=== PATIENT | male | born 1950 | race Hispanic/Latino ===

== ENCOUNTER 2022-01-01 14:53 | Inpatient (IN) | payer MEDICARE, MEDICAID ==
[~2022-01-01] VITALS: Ht 165.1 cm; Wt 80.0 kg
--- NOTE | 2022-01-01 16:00 | NUR ---
TO ROOM VIA WHEELCHAIR
--- NOTE | 2022-01-01 16:15 | NUR ---
CARDIZIEM GTT INITIATED PER PROTOCOL
--- NOTE | 2022-01-01 16:20 | NUR ---
CARDIZIEM GTT INCREASED TO 15MG PER PROTOCOL. PT ALERT AND ORIENTED, RESPS EVEN AND UNLABORED ON ROOM AIR, DENIES PAIN
[2022-01-01] MEDS ORDERED: IPRATROPIU0.5 MG/3 M IN (16:40)
[2022-01-01] MEDS ORDERED: LASIX 40 MG TAB40 MG PO (16:40)
[2022-01-01] MEDS ORDERED: METFORMIN HCL1000 MG PO (16:40)
[2022-01-01] MEDS ORDERED: ACETAMIN500 M2 PO (16:41)
[2022-01-01] MEDS ORDERED: TOPROL XL50 MG PO (16:41)
[2022-01-01] MEDS ORDERED: FERROUS SULF324 M1 PO (16:42)
[2022-01-01] MEDS ORDERED: ELIQUIS5 MG PO (16:42)
[2022-01-01] MEDS ORDERED: OMEPRAZOLE DR40 MG PO (16:43)
[2022-01-01] MEDS ORDERED: ZESTRIL5 M1 PO (16:44)
--- NOTE | 2022-01-01 17:05 | NUR ---
CARDIZIEM TITRATED TO 10MG PER PROTOCOL.
[2022-01-01 17:15] LABS: HEMATOCRIT 34.7 % (39.0-50.0); HEMOGLOBIN 10.7 g/dl (14.0-18.0); IMMATURE GRANULOCYTES 0.2 % (0.0-5.0); MEAN CORPUSCULAR HGB 24.7 pG CALC (26.0-32.0); MEAN CORPUSCULAR HGB CONC 30.8 g/dL CAL (32.0-36.0); NEUT# 6.83 thou/uL (1.82-7.42); RED BLOOD COUNT 4.34 mill/uL (4.70-6.10)
[2022-01-01 17:17] LABS: URINE BILIRUBIN - DIPSTICK NEGATIVE (NEGATIVE); URINE BLOOD DIPSTICK NEGATIVE (NEGATIVE); URINE COLOR YELLOW; URINE GLUCOSE - DIPSTICK NEGATIVE (NEGATIVE); URINE KETONE NEGATIVE (NEGATIVE); URINE LEUK ESTERASE NEGATIVE (NEGATIVE); URINE PROTEIN - DIPSTICK NEGATIVE (NEG-TRACE); URINE SPECIFIC GRAVITY 1.015; URINE UROBILINOGEN - DIPSTICK 0.2 E.U./dL (0.2)
[2022-01-01 17:21] LABS: URINE NITRITE - DIPSTICK NEGATIVE (Negative)
[2022-01-01 17:35] LABS: ALBUMIN 4.1 g/dL (3.2-5.0); ALKALINE PHOSPHATASE 105 u/l (38-126); ANION GAP 15 (6-22 (CALC)); BILIRUBIN, TOTAL 0.6 mg/dL (0.0-1.4); BUN 14 mg/dL (8-23); BUN/CREATININE RATIO 18 (12-20 (CALC)); CARBON DIOXIDE 27 mmol/l (22-30); CHLORIDE 96 mmol/l (95-108); CREATININE 0.8 mg/dL (0.7-1.3); GFR > 60 ML/MIN (>=60 (CALC)); GFR FOR AFR.AMER. > 60 ML/MIN (>=60 (CALC)); POTASSIUM 4.1 mmol/l (3.5-5.1); SGOT/AST 28 u/l (19-48); SODIUM 134 mmol/l (137-146); TOTAL PROTEIN 7.2 g/dL (6.3-8.2)
[2022-01-01 17:37] LABS: ETHYL ALCOHOL 0 mg/dl (0-30)
[2022-01-01 17:47] LABS: MYOGLOBIN 39 ng/mL (0 - 121)
[2022-01-01 17:57] LABS: INTERNATIONAL NORMALIZED RATIO 1.1 RATIO (0.7-1.3); PROTHROMBIN TIME 11.9 SECONDS (9.0-12.5)
--- NOTE | 2022-01-01 18:30 | NUR ---
TOLERATED FOOD AND PO FLUIDS WITHOUT DIFFICULTY.
--- NOTE | 2022-01-01 19:15 | NUR ---
REPORT TO FIFI MORROW
--- NOTE | 2022-01-01 20:00 | NUR ---
PT AWAITING ICU ASSIGNMENT. PT RESTING. VSS. A/O PWD RESP EASY REG. CM AFIB RATE 90'S TO 110. IV PATENT. INFUSING WELL. PT GIVEN BLANKET.
--- NOTE | 2022-01-01 21:10 | NUR ---
PT RESTING. NO C/O PT GIVEN WATER. VOIDED 600 CC OF URINE. CLEAR LIN.
--- NOTE | 2022-01-01 22:33 | NUR ---
PT VOIDED AGAIN. 700 CC IN URINAL. NO C/O.
--- NOTE | 2022-01-01 22:45 | NUR ---
PT C/O TROUBLE BREATHING. LUNGS CLEAR. STATES USES O2 AT HOME. PT PLACED ON NC AT 2 LPM. TOLERATED WELL
[2022-01-02] VITALS (10 sets, daily range): BP systolic 91–1109; BP diastolic 66–79
--- NOTE | 2022-01-02 00:30 | NUR ---
C/O NEEDING A TREATMENT. LUNGS SOME WHEEZES BILAT. NC AT 2 LPM. WILL CHECK FOR ORDERS
--- NOTE | 2022-01-02 00:48 | NUR ---
RT CALLED FOR BREATHING TREATMENT
--- NOTE | 2022-01-02 01:10 | NUR ---
BREATHING TREATMENT COMPLETED. REPORT CALLED TO CRISTHIAN FERNANDES/ICU
--- NOTE | 2022-01-02 01:29 | NUR ---
PT TO FLOOR VIA STRETCHER WITH MONITOR/O2/CARDIZEM DRIP AT 10. NANCY, SUPPERVISOR TO FLORR WITH PT. SECURITY IN TOW TO TAKE UP WALKER AND VALUABLES BAG.
--- NOTE | 2022-01-02 01:50 | NUR ---
RECEIVED PATIENT INTO ICU BED 3 FROM ER VIA STRETCHER. PATIENT ABLE TO TRANSFER SELF FROM STRETCHER TO BED. PLACED ON DIRECTOR OF GRANTS SHOWING AFIB, HR 90'S. IV IN LFA CARDIZEM GTT DECERASED TO 5 MG/HR. PATIENT USING O2 AT 2 L NC. BREATH SOUNDS CLEAR. EXERTIONAL DYSPNEA NOTED. ORIENTED TO SURROUNDINGS. CALL SCHAEFER IN REACH.
--- NOTE | 2022-01-02 04:00 | NUR ---
REMAINS IN AFIB, HR 90'S. VOIDS CLEAR YELLOW URINE IN URINAL.
[2022-01-02] MEDS ORDERED: OXYGEN (05:08)
--- NOTE | 2022-01-02 06:00 | NUR ---
RESTING QUIETLY IN BED. VSS.
[2022-01-02 06:27] LABS: HEMATOCRIT 35.4 % (39.0-50.0); HEMOGLOBIN 10.9 g/dl (14.0-18.0); MEAN CELL VOLUME 81.6 fL CALC (80.0-100.0); MEAN CORPUSCULAR HGB 25.1 pG CALC (26.0-32.0); MEAN CORPUSCULAR HGB CONC 30.8 g/dL CAL (32.0-36.0); RED BLOOD COUNT 4.34 mill/uL (4.70-6.10); RED CELL DISTRI WIDTH 20.2 % (11.5-15.5)
[2022-01-02 06:56] LABS: ANION GAP 14 (6-22 (CALC)); BUN 14 mg/dL (8-23); BUN/CREATININE RATIO 20 (12-20 (CALC)); CALCULATED LDLCHOLESTEROL 75 mg/dL (62-129 (CALC)); CARBON DIOXIDE 26 mmol/l (22-30); CHLORIDE 97 mmol/l (95-108); CHOLESTEROL HDL RATIO 3.3 (<4.4 (CALC)); CREATININE 0.7 mg/dL (0.7-1.3); GFR > 60 ML/MIN (>=60 (CALC)); GFR FOR AFR.AMER. > 60 ML/MIN (>=60 (CALC)); HDL CHOLESTEROL 38 mg/dL (>=40); MAGNESIUM 1.6 mg/dL (1.6-2.3); SODIUM 132 mmol/l (137-146); TOTAL CHOLESTEROL 127 mg/dl (0-199); TOTAL TRIGLYCERIDES 70 mg/dl (30-149); VLDL CHOLESTROL 14 mg/dl (0-38 (CALC))
--- NOTE | 2022-01-02 07:22 | NUR ---
Patient is screened for PT intervention and no needs are identified at this time
--- NOTE | 2022-01-02 08:00 | NUR ---
PATIENT IS A/OX2, DOES KNOW HIS NAME AND . 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 COMPLAINED OF PAIN 06/17, OFFERED TYLENOL WITH MORNING MEDS, HE STATED "YES". 3MM PERRLA BILAT. HAS DIMINISHED/WHEEZING LUNG SOUNDS. SOFT NON DISTENDED ABDOMEN. HYPOACTIVE BOWEL SOUNDS. EDEMA IN BILAT LEGS, LEFT LEG 3PITTING AND RIGHT LEG IS 2PITTING. PALPABLE PULSES. VITALS ARE STABLE. ON CARDIZEM DRIP AT 5, REMAINS AFIB. SAFETY MEASURES IN PLACE PER HOSPITAL PROTOCOL. CALL LIGHT IN REACH. WILL CONTINUE TO MONITOR PER PROTOCOL.
--- NOTE | 2022-01-02 10:00 | NUR ---
LAC 20G IV WAS PLACED BY KAILA MORROW, FOR CTA .
--- NOTE | 2022-01-02 10:00 | NUR ---
CAME BACK FROM CT SCAN
--- NOTE | 2022-01-02 14:38 | NUR ---
WALKED TO BATHROOM WITH WALKER, STEADY GAIT. HAD A LARGE BOWEL MOVEMENT
--- NOTE | 2022-01-02 16:00 | NUR ---
patient resting in chair at bedside.
--- NOTE | 2022-01-02 19:45 | NUR ---
RESTING IN BED. VSS. RESP NON-LABORED. BREATH SOUNDS DIMINISHED THROUGHOUT. O2 ON AT 2 L NC. SALINE LOCK INTACT X2 SITES IN LFA, BOTH SITES BENIGN. DIVIDING MACHINE OPERATOR SHOWS AFIB. DISCUSSED PLAN OF CARE. PATIENT C/O INDIGESTION, MEDICATED WITH MYLANTA 30 ML PO. CALL SCHAEFER IN REACH.
--- NOTE | 2022-01-02 21:00 | NUR ---
ASSISTED PATIENT UP TO RECLINER PER HIS REQUEST. MEDICATED SONATA FOR SLEEP, TYLENOL FOR GENERALIZED DISCOMFORTS AND ZOFRAN FOR NAUSEA. CALL SCHAEFER IN REACH.
--- NOTE | 2022-01-02 22:00 | NUR ---
RESTING WITH EYES CLOSED. VSS. AFIB ON MONITOR.
[2022-01-03] VITALS (11 sets, daily range): BP systolic 81–108; BP diastolic 48–80
--- NOTE | 2022-01-03 | NUR ---
SLEEPING IN RECLINER. VSS. AFIB ON MONITOR.
--- NOTE | 2022-01-03 02:00 | NUR ---
PATIENT REMAINS IN RECLINER. VSS. AFIB ON MONITOR, VARIABLE HEART RATE. VSS.
--- NOTE | 2022-01-03 04:15 | NUR ---
HOME CARE MUSIC THERAPIST IN TO DRAW BLOOD FOR AM LAB WORK.
[2022-01-03 05:56] LABS: HEMATOCRIT 34.6 % (39.0-50.0); HEMOGLOBIN 10.4 g/dl (14.0-18.0); MEAN CELL VOLUME 82.6 fL CALC (80.0-100.0); MEAN CORPUSCULAR HGB 24.8 pG CALC (26.0-32.0); MEAN CORPUSCULAR HGB CONC 30.1 g/dL CAL (32.0-36.0); RED BLOOD COUNT 4.19 mill/uL (4.70-6.10)
[2022-01-03 06:19] LABS: ANION GAP 11 (6-22 (CALC)); BUN 17 mg/dL (8-23); BUN/CREATININE RATIO 23 (12-20 (CALC)); CARBON DIOXIDE 27 mmol/l (22-30); CHLORIDE 97 mmol/l (95-108); CREATININE 0.7 mg/dL (0.7-1.3); GFR > 60 ML/MIN (>=60 (CALC)); GFR FOR AFR.AMER. > 60 ML/MIN (>=60 (CALC)); MAGNESIUM 1.8 mg/dL (1.6-2.3); POTASSIUM 5.1 mmol/l (3.5-5.1); SODIUM 130 mmol/l (137-146)
--- NOTE | 2022-01-03 08:00 | NUR ---
PATIENT IS SITTING UP IN CHAIR AT BEDSIDE, STATED HE CANT TALK, PROCEEDED TO TALK WITH HIS HANDS AND SOMETIMES SAY WORDS. DID WRITE A 7 WITH HIS FINGER STATED THAT WAS HIS PAIN LEVEL, OFFERED TYLENOL AGAIN WITH MORNING MEDS HE NODDED HIS HEAD YES. CLEAR TO DIMINISHED LUNG SOUNDS. CONTINUES TO RUN AFIB. SOFT ABDOMEN. ACTIVE BOWEL SOUNDS. EDEMA STILL ON LOWER BILAT. LEGS PITTING 3. PULSES PALPABLE. WALKS WITH HIS WALKER. SAFETY MEASURES IN PLACE, CALL LIGHT IN REACH. WILL CONTINUE TO MONITOR PER HOSPITAL'S POLICY.
--- NOTE | 2022-01-03 10:16 | NUR ---
PATIENT REQUESTED ICE WATER, IT WAS GIVEN, REMAINS IN RECLINER AT BEDSIDE. APPEARS TO BE MORE CALM THAN EARLIER THIS MORNING.
--- NOTE | 2022-01-03 19:15 | NUR ---
REPORT RECIEVED FROM OUT GOING SHIFT. PATIENT VERY ALERT AND ORIENTED X4. DENIES PAIN AT THIS TIME. DENTURES CLEANED AND SOAKED PLACED IN A CONTAINER AT BEDSIDE. STATIONARY EQUIPMENT MECHANIC SHOWS AFIB HR LOW 100'S. VOIDED 200 ML LIN URINE.
--- NOTE | 2022-01-03 21:56 | NUR ---
DR. OSBORNE UPDATED ON CONDITION. PATIENT DENIES PAIN OR DISCOMFORT PLEASANT AND COOPERATIVE. BP 105/70 CAardiac monitor shows afib
--- NOTE | 2022-01-03 23:48 | NUR ---
RESTING QUIETLY COUGHING OCCASSIONALLY EASILY AROUSABLE DENIES PAIN VOIDED 250 CC LIN URINE.
[2022-01-04] VITALS (15 sets, daily range): BP systolic 76–113; BP diastolic 56–78
--- NOTE | 2022-01-04 00:12 | NUR ---
AWAKE COMPLAIN OF GENERALIED ABDOMEN DISCOMFORT AND DIFICULTY SLEEPING. ASSISTED TO RECLINER CHAIR ON REQUEST FOR COMFORT. MEDICATED FOR RELIEF OF PAIN AND TO PROMOTE REST.
--- NOTE | 2022-01-04 02:00 | NUR ---
RESTING QUIETLY IN BED WITH EYES CLOSED NO DISTRESS NOTED
[2022-01-04 05:32] LABS: HEMATOCRIT 35.6 % (39.0-50.0); HEMOGLOBIN 10.9 g/dl (14.0-18.0); MEAN CELL VOLUME 81.5 fL CALC (80.0-100.0); MEAN CORPUSCULAR HGB 24.9 pG CALC (26.0-32.0); MEAN CORPUSCULAR HGB CONC 30.6 g/dL CAL (32.0-36.0); RED BLOOD COUNT 4.37 mill/uL (4.70-6.10); RED CELL DISTRI WIDTH 19.8 % (11.5-15.5)
[2022-01-04 07:16] LABS: ANION GAP 13 (6-22 (CALC)); BUN 25 mg/dL (8-23); BUN/CREATININE RATIO 27 (12-20 (CALC)); CARBON DIOXIDE 30 mmol/l (22-30); CHLORIDE 93 mmol/l (95-108); CREATININE 0.9 mg/dL (0.7-1.3); GFR > 60 ML/MIN (>=60 (CALC)); GFR FOR AFR.AMER. > 60 ML/MIN (>=60 (CALC)); MAGNESIUM 1.7 mg/dL (1.6-2.3); SODIUM 131 mmol/l (137-146)
[2022-01-04 07:17] LABS: POTASSIUM 5.3 mmol/l (3.5-5.1)
--- NOTE | 2022-01-04 08:00 | NUR ---
PATIENT A/O, SEEMS ANGRY THIS MORNING ABOUT HIS PHONE. TRIED TO HELP HE THREW HIS PHONE ON THE TABLE AND MOTIONED ME TO GET OUT. I STAYED AND ASSESSED HIM, 3MM PERRLA BILAT EYES. SPEAKING QUIETLY. STATED HIS THROAT IS HURTING. LUNG SOUNDS ARE CLEAR TO DIMINISHED. 2L NC. ACTIVE BOWEL SOUNDS. STATED HIS STOMATCH DOESNT HURT AT THIS TIME JUST HIS THROAT. 7/10 PAIN. EDEMA HAS IMPROVED A LITTLE, 2+ PITTING. LEFT LEG IS STILL SLIGHTLY BIGGER THAN THE RIGHT LEG.PALPABLE PULSES. STRONG HAND PLATFORM SUPERVISOR. NO ARM DRIFTS. SAFETY MEASURES IN PLACE. CALL LIGHT IN REACH. WILL CONTINUE TO MONITOR PER HOSPITAL'S POLICY.
--- NOTE | 2022-01-04 10:00 | NUR ---
PATIENT IS WATCHING TV IN HIS RECLINER
--- NOTE | 2022-01-04 12:00 | NUR ---
SITTING UP IN CHAIR WATCHING TV EATING HIS LUNCH
--- NOTE | 2022-01-04 14:00 | NUR ---
WATCHING TV IN HIS CHAIR
--- NOTE | 2022-01-04 16:00 | NUR ---
RESTING IN BED
--- NOTE | 2022-01-04 18:03 | NUR ---
PATIENT IS MAD ABOUT THE FOOD, SAID "TAKE IT" AND MOTIONED HIS HANDS TO TAKE IT AWAY. LEFT HIS CAKE AND TEA ON TABLE. HE LET ME GIVE HIS INSULIN COVERAGE. THEN MOTIONED ME TO GET OUT.
--- NOTE | 2022-01-04 19:40 | NUR ---
RESTIGN WITH EYES CLOSED. AWAKENS TO NAME. RESP NON-LABORED. LUNGS CLEAR/DIMINISHED. SALINE LOCK IN PLACE IN LEFT ARM. MONITOR SHOWS AFIB. VOIDS CLEAR YELLOW URINE. DISCUSSED PLAN OF CARE. DENIES NEEDS AT THIS TIME. CALL SCHAEFER IN REACH.
--- NOTE | 2022-01-04 21:00 | NUR ---
RESTING WITH EYES CLOSED. RESP NON-LABORED. AFIB ON MONITOR, HR 110'S.
--- NOTE | 2022-01-04 21:00 | NUR ---
PATIENT GROUCHY AND ARGUMENTIVE TONIGHT. C/O ABOUT TAKING HIS MEDICATIONS, ALTHOUGH HE DID END UP TAKING THEM. CONTINUES C/O INDIGESTION MEDICATED WITH MYLANTA 30 ML PO ORDERED. ACCU CHECK [id number], COVERED PER SS PROTOCOL.
--- NOTE | 2022-01-04 23:50 | NUR ---
PATIENT UP TO SIDE OF BED TO USE URINAL. HR UP INTO THE 140'S WHILE VOIDING. PATIENT UP TO RECLINER INDEPENDENTLY. HR TO THE 100-110'S ONCE SITTING IN CHAIR. ZOFRAN GIVEN FOR C/O NAUSEA AND TYLENOL FOR C/O GENERALIZED DISCOMFORTS.
[2022-01-05] VITALS (13 sets, daily range): BP systolic 93–130; BP diastolic 54–88
--- NOTE | 2022-01-05 02:16 | NUR ---
PATIENT RESTING IN BED AT THIS TIME. VSS. REMAINS IN AFIB, HR 90'S-110.
--- NOTE | 2022-01-05 04:00 | NUR ---
RESTING WITH EYES CLSOED. RESP NON-LABORED. VSS. AFIB ON MONITOR, HR 90'S.
--- NOTE | 2022-01-05 04:42 | NUR ---
WIRE FRAME DIPPER IN TO DRAW BLOOD FOR AM LAB WORK.
[2022-01-05 05:23] LABS: HEMATOCRIT 34.5 % (39.0-50.0); HEMOGLOBIN 10.7 g/dl (14.0-18.0); MEAN CORPUSCULAR HGB 25.1 pG CALC (26.0-32.0); RED BLOOD COUNT 4.26 mill/uL (4.70-6.10); RED CELL DISTRI WIDTH 20.1 % (11.5-15.5)
[2022-01-05 05:32] LABS: BUN 34 mg/dL (8-23); BUN/CREATININE RATIO 32 (12-20 (CALC)); CARBON DIOXIDE 29 mmol/l (22-30); CHLORIDE 94 mmol/l (95-108); CREATININE 1.1 mg/dL (0.7-1.3); GFR > 60 ML/MIN (>=60 (CALC)); GFR FOR AFR.AMER. > 60 ML/MIN (>=60 (CALC)); MAGNESIUM 1.9 mg/dL (1.6-2.3); SODIUM 130 mmol/l (137-146)
[2022-01-05 05:33] LABS: ANION GAP 12 (6-22 (CALC)); POTASSIUM 5.3 mmol/l (3.5-5.1)
--- NOTE | 2022-01-05 08:00 | NUR ---
REPORT RECEIVED FROM CRISTHIAN DUENAS. PT AWAKE ALERT AND SITTING IN BEDSIDE CHAIR. PT VS TAKEN. BP IS LOW MIDODRINE GIVEN AT THIS TIME. ASSESSMENT PREFORMED, PT DOES NOT APPEAR TO BE IN ANYTYPE OF DISTRESS. CALL LIGHT WITHIN REACH. INSTRUCTED PT TO CALL FOR ASSISTANCE, VERBALIZES UNDERSTANDING.
--- NOTE | 2022-01-05 11:55 | NUR ---
PT FINISHED WITH ORAL CONTRAST CT NOTIFIED. VSS, DENIES PAIN. GIVEN CHLOROSEPTIC LOZENGE FOR SORE THROAT. PT ASKING WHY UPPER BODY IS ITCHING. WILL NOTIFY PHYSICIAN OF POSSIBLE REACTION TO CONTRAST.
--- NOTE | 2022-01-05 14:00 | NUR ---
PT SITTING IN CHAIR AT THIS TIME. WATCHING TV. ABX THERAPY INFUSING. NO S/S OF ALLERGIC REACTION AFTER CT SCAN. VSS. UA SPECIMEN OBTAINED. PT HAD SMALL BM. STILL C/O ABDOMINAL DISCOMFORT. NO CHANGE TO POC AFTER CT SCAN. INSTRUCTED PT TO CALL FOR ASSISTANCE, VERBALIZES UNDERSTANDING.
[2022-01-05 14:19] LABS: URINE BILIRUBIN - DIPSTICK NEGATIVE (NEGATIVE); URINE BLOOD DIPSTICK NEGATIVE (NEGATIVE); URINE CLARITY CLEAR; URINE COLOR YELLOW; URINE GLUCOSE - DIPSTICK NEGATIVE (NEGATIVE); URINE KETONE NEGATIVE (NEGATIVE); URINE LEUK ESTERASE NEGATIVE (Negative); URINE NITRITE - DIPSTICK NEGATIVE (Negative); URINE PROTEIN - DIPSTICK NEGATIVE (NEG-TRACE); URINE SPECIFIC GRAVITY 1.015; URINE UROBILINOGEN - DIPSTICK 0.2 E.U./dL (0.2)
--- NOTE | 2022-01-05 16:14 | NUR ---
pt transferred to med-surg at this time. belongings sent with patient. report called to reece dahl. stable at time of departure.
--- NOTE | 2022-01-05 17:27 | NUR ---
RECEIVE REPORT FROM CORIN MORROW. PATIENT STABLE NO REFER PAIN. EDUCATED ABOUT MEDICATIONS AND NURSING CARE. PATIENT REPORT UNDERSTAND.
--- NOTE | 2022-01-05 20:00 | NUR ---
PATIENT SITTING UP IN THE RECLINER AT THIS TIME WITH O2 VIA NASAL CANNULA IN PLACE. O2 SATS WNL. AWAKE ALERT AND ORIENTED C/O SEVERE ITCHING-CALL TO DR. BRICEÑO AND NEW ORDER RECIEVED-WILL MEDICATED WITH BENEDRYL WHEN PROFILED ON EMAR. SALINE LOCK INTACT TO LEFT AC REMAINS HEALTHY AT THIS TIME, BLE SWELLING-PULSES ARE FAIT BUT PALPABLE. FEET ARE COLD TO TOUCH. ENCOURAGED ELEVATION OF LE WHEN POSSIBLE. PATIENT WITH HOARSE VOICE-S/P INTUBATION. SAFETY PRECAUTIONS REINFORCED. CALL LIGHT IN REACH. WILL CONT TO SHEELA,
--- NOTE | 2022-01-05 21:00 | NUR ---
PATIENT RESTING IN BED AT THIS TIME-AWAKE ALERT AND ORIENTEDX3. PATIENT C/O ITCHING AND HAS BEEN MEDICATED WITH BENEDRYL 25MG IVP VIA LAC SL. TELE MONITOR IN PLACE WITH LAST READING BEING A-FIB 123. O2 VIA NASAL CANNULA IN PLACE. GLUCOSE MONITOR WAS 246-MEDICATED WITH HUMALOG 2UNITS SQ PER SLIDING SCALE COVERAGE PROTOCEL. PROVIDED WITH HS SNACK. SAFETY PRECAUTIONS REINFORCED, CALL LIGHT IN REACH, WILL CONT TO MONITOR.
--- NOTE | 2022-01-05 21:36 | NUR ---
RECEIVED CALL FROM PREMA VILLARREAL IN ER-PATIENT CONT TO SHOW A-FIF RVR WITH SUSTAINED RATE 140-150 EVEN AFTER PM MEDS GIVEN. GETTING EKG NOW. WILL CONT TO MONITOR.
--- NOTE | 2022-01-05 21:57 | NUR ---
EKG WAS DONE AND PATIENT STILL READING A-FIB RVR RATE OF 140-145. DR. BRICEÑO INFORMED AND WILL PLACE NEW ORDERS. WILL MEDICATE ACCORDINGLY WHEN PROFILED ON . PATIENT CONT TO C/O SEVERE ITCHING EVEN AFTER BEING MEDICATED WITH BENEDRYL. WILL CONT TO MONITOR.
--- NOTE | 2022-01-05 22:15 | NUR ---
PATIENT RESTING IN BED WITH O2 IN PLACE AT 2LPN. TELE MONITOR IN PLACE. MEDICATED WITH LOPRESSOR 5MG IVP ORDERED FOR A-FIB RVR VIA LAC SITE. MEDICATED WITH SONATA 5MG PO FOR SLEEP AND WITH TYLENOL 650MG PO FOR GENRALIZED DISCOMFORT. WILL CONT TO MONITOR.
--- NOTE | 2022-01-05 23:24 | NUR ---
PATIENT RESTING IN BED-TELE IS STILL A-FIB RVR WITH RATE IN 130'S TO 140'S. DR BRICEÑO WAS NOTIFIED AND NEW ORDERS RECIEVED. WILL MEDICATE AGAIN WITH LOPRESSOR 5MG IVP WHEN PROFILED ON EMAR. WILL CONT TO MONITOR.
--- NOTE | 2022-01-05 23:34 | NUR ---
PATIENT SITTING UP IN THE BED. PATIENT IS ANXIOUS WITH O2 OFF-O2 REAPPLIED AT 2LPM. LOPRESSOR 5MG IVP GIBEN AGAIN VIA LAC IV SITE. CALL LIGHT IN REACH. WILL CONT TO MONITOR.
[2022-01-06] VITALS (19 sets, daily range): BP systolic 93–130; BP diastolic 53–94
--- NOTE | 2022-01-06 00:15 | NUR ---
RECEIVED PATIENT BACK INTO ICU 3 FROM M/S VIA BED. PATIENT BACK IN AFIB RVR WHICH HAS NOT RESPONDED TO 2 DOSES OF LOPRESSOR GIVEN ON /S. PLACED ON MAGNETO ELECTRICIAN SHOWING AFIB, VARIABLE HR 110'S-130'S. PATIENT IRRITABLE AND ANXIOUS. SUPPORT AND REASSURANCE PROVIDED. ASSISTED PATIENT UP TO RECLINER PER HIS REQUEST. C/O NAUSEA, MEDICATED WITH MYLANTA 30 ML PO AND ZOFRAN IV. SALINE LOCK IN LAC FLUSHED AND PATENT, SITE BENIGN. WILL CONTINUE TO MONITOR CLOSELY. CALL SCHAEFER IN REACH.
--- NOTE | 2022-01-06 00:15 | NUR ---
PATIENT RESTING IN BED-O2 OFF AGAIN AND PATIENT IS SLAPPING HIS HEAD SHAKING IT NO. PATIENT VERY ANXIOUS AT THIS TIME. O2 REAPPLIED. PATIENT REMAINS A-FIB RVR RATE OF 130-140. PATIENT TRANSFERRED VIA BED TO ICU BED 3. BEDSIDE REPORT GIVEN TO YULISSA MORROW.
--- NOTE | 2022-01-06 01:25 | NUR ---
REMAINS AFIB, HR ERRATIC LOW 100'S-140'S. HAS BEEN SUSTAINING 130'S-140'S. CARDIZEM GTT STARTED PER PROTOCOL. PATIENT WEIGHT 80 KG-BOLUS 20 MG GIVEN OVER 2 MINUTES ON PUMP, DRIP STARTED AT 10 MG.
--- NOTE | 2022-01-06 01:30 | NUR ---
HR DOWN TO THE 70'S-80'S. BP 93/56. CARDIZEM GTT DECREASED TO 5 MG/HR.
--- NOTE | 2022-01-06 02:00 | NUR ---
VSS. HR 70'S-80'S. PATIENT RESTING IN BED WITH EYES CLOSED.
--- NOTE | 2022-01-06 04:00 | NUR ---
VSS. RESTING WITH EYES CLOSED.
[2022-01-06 05:05] LABS: HEMOGLOBIN 10.4 g/dl (14.0-18.0); MEAN CELL VOLUME 81.5 fL CALC (80.0-100.0); MEAN CORPUSCULAR HGB 24.9 pG CALC (26.0-32.0); MEAN CORPUSCULAR HGB CONC 30.6 g/dL CAL (32.0-36.0); RED BLOOD COUNT 4.17 mill/uL (4.70-6.10); RED CELL DISTRI WIDTH 19.8 % (11.5-15.5)
[2022-01-06 05:24] LABS: CREATININE 1.4 mg/dL (0.7-1.3); MAGNESIUM 2.1 mg/dL (1.6-2.3)
[2022-01-06 05:25] LABS: POTASSIUM 5.7 mmol/l (3.5-5.1)
--- NOTE | 2022-01-06 06:00 | NUR ---
AFIB, HR 70'S ON CARDIZEM GTT AT 5 MG/HR.
--- NOTE | 2022-01-06 08:10 | NUR ---
PATIENT SITTING UP IN CHAIR AT THIS TIME ALERT AND ORIENTED AT THIS TIME CALL LIGHT WITHIN REACH. DIRECTOR OF HOUSING AND ENERGY SERVICES DONE AT THIS TIME SEE INTERVENTIONS AUTOMOBILE DRIVERS SHOWS A-FIB WIHT HR OF 74. PATIENT DENIES ANY PAIN AT THIS TIME. LUNG FIELD ARE CLEAR IN UPPER AND DIMINISHED IN LOWER VERA. PATIENT REMAINS ON A CARDIZEM DRIP AT 5MG AND O2 ON 2 LITERS DUE DO SPO2 AT 88%. WILL CONTINUE TO MONITOR.
--- NOTE | 2022-01-06 10:22 | NUR ---
PATIENT CARDIEM DRIP STOPPED AT THIS TIME BP IS 119/70 HR IS 81 (CONTROLLED) AT THIS TIME AND PATIENT HR IS SHOWING A-FIB. PATIENT DENIES ANY PALPITATIONS AND OR CHEST DISCOMFORT AT THIS TIME. WILL CONTINUE TO MONITOR.
--- NOTE | 2022-01-06 10:29 | NUR ---
EKG RESULTS SENT TO DR. BRICEÑO
--- NOTE | 2022-01-06 11:30 | NUR ---
PATIENT SITTING UP IN CHAIR AT THIS TIME EATING LUNCH. PATIENT KEELY ANY NEEDS CURRENTLY COMMISSIONING ENGINEER READING AFIB AT HR OF 84 BP IS CURRENTLY 112/69 AND CALL LIGHT IS WITHIN REACH. WILL CONTINUE TO MONITOR.
--- NOTE | 2022-01-06 13:16 | NUR ---
PATIENT REMAINS UP IN CHAIR AT THIS TIME. PATIENT COMPLAINING OF NECK HURTING AT THIS TIME. 650MG OF TYLENOL GIVEN PO FOR A PAIN OF 4 ON THE PAIN SCALE OF 0-10. 1 CEPACOL THROAT LOZENGE GIVEN WELL.
--- NOTE | 2022-01-06 13:53 | NUR ---
30ML OF MYLANTA GIVEN AT THIS TIME FOR INDIGESTION. PATIENT STATES AFTER HE EATS HIS STOMACH GETS UPSET. PATIENT SPO2 IS 88% AND MOVED HIS O2 UP TO 4 LITERS AT THIS TIME AND SPO2 IS 94%. PATIENT RESTING IN BED AT THIS TIME RESPIRATORY CALL TO ASSESS BREATHING APPARATIS FOR PATIENT.
--- NOTE | 2022-01-06 13:59 | NUR ---
PATIENT ASSESSED BY [facility] AND IS PLACED ON A VENT-I MASK AT 35%. WILL CONTINUE TO MONITOR.
--- NOTE | 2022-01-06 14:04 | NUR ---
Spoke with Dr. Ivey concerning treatment after ICU transfer, PT can be continued without new evaluation. Continuation approved by PT Lam Nguyen as well. Attempted to see pt several times today. he has just returned to bed and awaiting for ECHO to be done, per nursing. Respiratory intervention also requested by nurse due to desating. Hold treatment for today.
--- NOTE | 2022-01-06 14:04 | NUR ---
CALLED TO BEDSIDE BY RN TO EVAULATE O2 NEED FOR PATIENT. RN NOTED PT DOING ALOT OF MOUTH BREATHING AND COULD BENEFIT FROM A MASK INSTEAD OF A CANNULA. RT AGREED THAT PT WAS DOING A LOT OF MOUTH BREATHING AND CAUSED HIS LITER FLOW TO BE INCRESAED TO 4L ON NASAL CANNULA DUE TO DESAT. PT PLACED ON VENTURI MASK AT 36% WITH SATS RETURNING TO 98%.
--- NOTE | 2022-01-06 15:03 | NUR ---
4MG OF ZOFRAN GIVEN AT THIS TIME FOR NAUSEA. PATIENT STATED HE DOES NOT WANT TO EAT DINNER TONIGHT. PATIENT ADVISED TO EAT SMALL MEAL AND NOT TO OVER EAT. WILL CONTINUE TO MONITOR.
--- NOTE | 2022-01-06 16:00 | NUR ---
PATIENT SITTING UP IN CHAIR AT THIS TIME. PATIENT DEINES ANY PAIN BUT DOES STATE THAT HIS STOMACH IS STILL "BOTHERING HIM" BUT A "LITTLE BETTER". PATIENT WAS ASSISTED TO BATHROOM AT THIS TIME AND PATIENT DID HAVE MODERATE BOWEL MOVEMENT BROWN AND SOFT IN COLOR. PATIENT REMAINS ON VENTI MASK AND IS AT SP02 OF 100%. VENTI MASK SETTING IS 35%. WOOL PRESSER READING SHOWS HR IS 95/AFIB AND BP IS 108/76 AND RESPIRATIONS ARE 16. BLOOD GLUCOSE CHECKED AT THIS TIME AND RESULTS ARE 219. CALL LIGHT IS WITHIN REACH WILL CONTINUE TO MONITOR.
--- NOTE | 2022-01-06 19:42 | NUR ---
REPORT GIVEN BY KATELIN. PATIENT SITTING IN RECLINER AT BEDSIDE. RESP LABORED AND EVEN, VENTI MASK IN PLACE. FALL AND SAFTEY PRECAUTIONS IN PLACE. PATIENT INFORMED TO CALL WITH ANY QUESTIONS OR CONCERNS. PLAN OF CARE DISCUSSED. IV INFUSING KVO FLUIDS.
--- NOTE | 2022-01-06 22:43 | NUR ---
AUDIABLE WHEEZING AND O2 SAT 0F 76%. RT CALLED TO GIVEN THE PATIENT A BREATHING TREATMENT.
--- NOTE | 2022-01-06 23:36 | NUR ---
CARDIZEM STARTED. PATIENT SUSTAINING A HEART RATE >130
[2022-01-07] VITALS (71 sets, daily range): BP systolic 51–173; BP diastolic 37–126
--- NOTE | 2022-01-07 01:52 | NUR ---
patient resting with eyes closed. resp even and unlabored, venti mask in place. fall and saftey precautions in place.
--- NOTE | 2022-01-07 04:19 | NUR ---
PATIENT RESTING WITH EYES CLOSED RESP EVEN AND UNLABORED. NO S/S OF DISTRESS NOTED
[2022-01-07 06:13] LABS: HEMATOCRIT 32.5 % (39.0-50.0); MEAN CORPUSCULAR HGB 24.9 pG CALC (26.0-32.0); MEAN CORPUSCULAR HGB CONC 30.8 g/dL CAL (32.0-36.0); RED BLOOD COUNT 4.01 mill/uL (4.70-6.10); RED CELL DISTRI WIDTH 19.6 % (11.5-15.5)
[2022-01-07 06:34] LABS: BUN 41 mg/dL (8-23); BUN/CREATININE RATIO 32 (12-20 (CALC)); CARBON DIOXIDE 31 mmol/l (22-30); CHLORIDE 92 mmol/l (95-108); CREATININE 1.3 mg/dL (0.7-1.3); GFR 54 ML/MIN (>=60 (CALC)); GFR FOR AFR.AMER. > 60 ML/MIN (>=60 (CALC)); MAGNESIUM 2.5 mg/dL (1.6-2.3); SODIUM 130 mmol/l (137-146)
[2022-01-07 06:36] LABS: ANION GAP 13 (6-22 (CALC)); POTASSIUM 5.9 mmol/l (3.5-5.1)
--- NOTE | 2022-01-07 07:10 | NUR ---
REPORT FROM TOY MORROW. ASSUMED PT CARE.
--- NOTE | 2022-01-07 08:20 | NUR ---
PT SITTING UP IN CHAIR AT BEDSIDE. PT REQUEST TO USE BATHROOM. SET UP BSC, PT SET UP WITH BASIN AND CLEAN LINENS TO BATHE. PT REFUSED ASSISTANCE. CALL LIGHT WITHIN REACH. PT REMAINS ON 4L/M VIA NC, SAT 94%. RADHAM GTT @ 5ML/HR, HR IN THE 90S. WILL CONTINUE TO MONITOR.
--- NOTE | 2022-01-07 09:40 | NUR ---
PHYSICIAN AT BEDSIDE. CARDIZEM GTT STOPPED AT THIS TIME FOR LOW BP. LOPRESSOR ALSO HELD PER MD. WILL CONTINUE TO MONITOR.
--- NOTE | 2022-01-07 10:40 | NUR ---
STEVE MORROW AT BEDSIDE TO ADMINISTER IV INSULIN.
--- NOTE | 2022-01-07 11:50 | NUR ---
PT NOTED SITTING UP IN CHAIR AT BEDSIDE. NO APPARENT DISTRESS NOTED. BP REMAINS ON THE LOWER SIDE HR 80-90S. PO LOPRESSOR HELD AT THIS TIME. NOTIFIED DR BRICEÑO AT THIS TIME. CALL LIGHT WITHIN REACH. WILL CONTINUE TO MONITOR.
--- NOTE | 2022-01-07 13:32 | NUR ---
S- Pt c/o his throat and stomach being sore, whispers answers to questions. 0- Nursing contacted prior to treatment and stated pt had be up to BR and was in chair. Pt resting in chair. He was cooperative with treatment. LE ex performed in sitting active 2 x10 reps for hip flexion, LAQ, ankle dorsiflexion, pt reported doing these at home. Transfer chair to bed with supervision only. Bed mobility was modified indep using bed rails. Standing up on toes, mini squats 2 x 10 reps with CGA, mild LOB up on toes at times. Pt able to side step, walk forward backwards within limits of lines with CGA. HR 96-116 with activiy and back to low 90's with rest. 02sat upper 90's. Time spent with pt 40 min. Pt left in chair with call hernandez and tray in reach. A- Pt participating with treatment and mobility improved from evaluation. [facility] 15 home health of out pt treatment. P- will progress as CV status allows.
--- NOTE | 2022-01-07 15:12 | NUR ---
RT AT BEDSIDE. O2 TITRATED DOWN TO 2L/M VIA NC. PT TOLERATING WELL. WILL CONTINUE TO MONITOR.
--- NOTE | 2022-01-07 16:35 | NUR ---
NOTIFIED PHYSICIAN OF HR SUSTAINING IN 120S. BP REMAINS ON THE LOW SIDE. NEW ORDERS RECEIVED FOR MIDODRINE PO. WILL MONITOR AND ADMINISTER LOPRESSOR WHEN EFFECTIVE. AWAITING ORDERS TO BE PROFILED. NO APPARENT DISTRESS NOTED. PT MADE SPECIAL REQUEST FOR TUNA SANDWICH FOR DINNER, DIETARY NOTIFIED. WILL CONTINUE TO MONITOR.
--- NOTE | 2022-01-07 17:34 | NUR ---
NOTIFIED TOWEL STRETCHER PHYSICIAN OF HR SUSTAINING 120S-150S AT THIS TIME. NEW ORDERS PENDING. NO APPARENT DISTRESS NOTED. PT SITTING UP IN CHAIR EATING DINNER.
--- NOTE | 2022-01-07 18:18 | NUR ---
STEVE MORROW AT BEDSIDE TO ADMINISTER IV LOPRESSOR ORDERED.
--- NOTE | 2022-01-07 19:00 | NUR ---
REPORT RECIEVED FROM OUTGOING SHIFT. PATIENT AWAKE AND ALERT SPEECH WITH RASPY WHISPER C/O SORE THROAT DISCMFORT
--- NOTE | 2022-01-07 20:48 | NUR ---
PT SITTING UP AT BEDSIDE VOIDED 250 ML CLEAR YELLOW URINE. PATIENT COMPLAIN OF MODERATE THROAT DISCOFORT AND DIFICULTY SPEECH. RASPY VOICE QUALITY NOTED. MEDICATED WITH CLORASEPTIC LOZENGERS TO SOOTHE THROAT AND ZALEPLON 5 MG TO AID WITH SLEEP.
--- NOTE | 2022-01-07 20:50 | NUR ---
PT AGGITATED AT THIS TIME. PT STATES CAME TO GET BETTER AND YOUR KILLING ME. MY VOICE IS GONE, MY LEG IS BAD AND MY SUGAR IS HIGH. " PT INFORMED ON STERIODS THAT ELEVATES GULCOSE. PT APPEARS TO CALM DOWN SLIGHTLY AFTER EXPLAINING POC. SCHEDULED AND PRN MEDICATIONS ADMINISTERED. PT DENIES OF ANY ADDITIONAL NEEDS.
--- NOTE | 2022-01-07 22:30 | NUR ---
PATENT HEART RATE 150'S AFTER AEROSOL NEBULIZER TREATMENT. DR BRICEÑO UPDATED ON CONDIION CARDIZEM DRIP RESTARTED AT 5 MG/HR XANAX 0.5 MG GIVEN TO RELIEVE ANXIETY AND RESTLESSNESS.
[2022-01-08] VITALS (39 sets, daily range): BP systolic 78–127; BP diastolic 50–91
--- NOTE | 2022-01-08 | NUR ---
RESTING QUIETLY LYING ON LEFT SIDE GROOVER AND STRIPER OPERATOR SHOW AFIB WITH CONTROLED VENTRICULAR RATE 90'S. NO ACUTE DISTRESS NOTED
--- NOTE | 2022-01-08 02:00 | NUR ---
RESTING QUIETLY IN BED WITH EYES CLOSED NO ACUTE DISTRESS NOTED VSS REMAIN IN AFIB HR IN THE 90'S CARDIZEM INFUSING AT 5 MG/HR
--- NOTE | 2022-01-08 03:32 | NUR ---
PATIENT AWAKE ALERT VOIDED 200 ML IN THE URINL COMPLAIN OF SORE THROAT DISCOFORT CHLOROSEPTIC LOZENGER GIVEN TO HELP RELIEVE THROAT DISCOMFORT
--- NOTE | 2022-01-08 04:17 | NUR ---
RESTING QUIETLY IN BED WITH EYES CLOSED NO COMPLAINTS VOICED. SPO2 SAT 96% RESPIRATIONS EVEN AND UNLABORED. CARDIZEM DRIP IFUSING AT 5 MG/HR VSS
[2022-01-08 05:52] LABS: HEMATOCRIT 34.3 % (39.0-50.0); HEMOGLOBIN 10.5 g/dl (14.0-18.0); MEAN CELL VOLUME 81.7 fL CALC (80.0-100.0); MEAN CORPUSCULAR HGB CONC 30.6 g/dL CAL (32.0-36.0); RED BLOOD COUNT 4.2 mill/uL (4.70-6.10); RED CELL DISTRI WIDTH 19.8 % (11.5-15.5)
[2022-01-08 06:08] LABS: BUN 34 mg/dL (8-23); BUN/CREATININE RATIO 41 (12-20 (CALC)); CARBON DIOXIDE 34 mmol/l (22-30); CHLORIDE 94 mmol/l (95-108); CREATININE 0.8 mg/dL (0.7-1.3); GFR > 60 ML/MIN (>=60 (CALC)); GFR FOR AFR.AMER. > 60 ML/MIN (>=60 (CALC)); MAGNESIUM 2.2 mg/dL (1.6-2.3); SODIUM 132 mmol/l (137-146)
[2022-01-08 06:11] LABS: ANION GAP 10 (6-22 (CALC))
[2022-01-08 06:29] LABS: POTASSIUM 5.5 mmol/l (3.5-5.1)
--- NOTE | 2022-01-08 06:34 | NUR ---
PT C NAD. VSS. OTR OWNER OPERATOR TO MONITOR.
--- NOTE | 2022-01-08 07:31 | NUR ---
PT REPORT RECEIVED FROM STOCK OR DELIVERY CLERK. PT SITTING UP IN RECLINER, ALERT/ORIENTED X3.
--- NOTE | 2022-01-08 10:21 | NUR ---
DR. TRINIDAD SPEAKING WITH PT. 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 . SPEAKING WITH DR. GROSSMAN, WHO WANTS PT TRANSFERRED TO [facility] IF POSSIBLE.
--- NOTE | 2022-01-08 11:19 | NUR ---
PT TO BE TRANSFERRED TO [facility] TOMORROW. PT HAS A BED 371, BUT THEY DO NOT WANT TO ACCEPT PT UNTIL AROUND 5 THIS AFTERNOON AFTER THEY CAN DISCHAGE SOME PEOPLE
--- NOTE | 2022-01-08 12:34 | NUR ---
PT BACK IN BED, HEART RATE BOUNCING FROM 80'S TO 100'S. DENIES ANY CHEST PAIN OR PALPITATIONS AT THIS TIME.
--- NOTE | 2022-01-08 13:20 | NUR ---
S- Pt trying to be understand, was frustrated. 0- Contacted nursing prior to treatment. On entering room pt sitting on edge of bed on phone. Pt was having some difficulty and unable to unstand what pt needed. Nursing in. Pt return self to supine. He participated in AROM ex to BLEs x 20 reps in supine but did not want to participate further in treatment. HR in 80's. Pt left in bed with call hernandez in reach. A- [facility] 14 home health or OP therapy. P- Continue PT for gait/TE and progress as tolerated.
--- NOTE | 2022-01-08 13:30 | NUR ---
PT COMPLAINING OF CHEST RACING FEELING AT THIS TIME, HEART RATE 100'110'S, EKG OBTAINED AND SHOWN TO ERIC CERVANTES , WILL RESTART CARDIZEM DRIP AT 5 FOR HEART RATE. PT LAYING ON BED AT THIS TIME, STATES CHEST RACING FEELING IS GONE AND FEELS BETTER
--- NOTE | 2022-01-08 16:27 | NUR ---
PT REPORT GIVEN TO FERNANDO AT [facility]. [facility] HERE FOR TRANSPORTATION.
== END 2022-01-08 16:30 | disposition short-term general hospital (02) | DRG 308 ==
LOC: ED 14:53 → ED-I 16:53 → ED 16:53 → ED-I 17:20 → ED 19:03 → ICU 19:07 → MS2 01-05 16:29 → ICU 01-06 00:15
PROVIDERS: Emergency Medicine; Nurse Practitioner; ADMIT Internal Medicine; ATTEND Hospitalist
DX: I48.91 Unspecified atrial fibrillation (principal); I50.23 Acute on chronic systolic (congestive) heart failure; J18.9 Pneumonia, unspecified organism; J44.0 Chronic obstructive pulmonary disease with (acute) lower respiratory infection; N17.9 Acute kidney failure, unspecified; E87.5 Hyperkalemia; I11.0 Hypertensive heart disease with heart failure; K59.00 Constipation, unspecified; R10.84 Generalized abdominal pain; T46.2X5A Adverse effect of other antidysrhythmic drugs, initial encounter; R16.0 Hepatomegaly, not elsewhere classified; R49.0 Dysphonia; E11.9 Type 2 diabetes mellitus without complications; I25.10 Atherosclerotic heart disease of native coronary artery without angina pectoris; D64.9 Anemia, unspecified; K21.9 Gastro-esophageal reflux disease without esophagitis; F17.210 Nicotine dependence, cigarettes, uncomplicated; Z79.01 Long term (current) use of anticoagulants; Z79.84 Long term (current) use of oral hypoglycemic drugs; Z86.16 Personal history of COVID-19; Z20.822 Contact with and (suspected) exposure to COVID-19
CPT/HCPCS: Q9967